=== PATIENT | female | born 1980 | race Caucasian/White ===

== ENCOUNTER 2021-10-30 10:56 | Emergency (ER) | payer BC ==
[~2021-10-30] VITALS: Ht 160 cm; Wt 90.7 kg
[~2021-10-30 10:56] MED LIST: CYCL10 PO; HYDACE5 PO; IBUP400 PO; IBUP800 PO; LORA.5; Percocet 5-3251 EACH PO; SULTRIDS PO; TRAM50 PO
== END 2021-10-30 11:33 | disposition home or self-care (01) ==
LOC: ER 10:56
DX: L23.7 Allergic contact dermatitis due to plants, except food (principal); Z88.8 Allergy status to other drugs, medicaments and biological substances; Z87.891 Personal history of nicotine dependence
CPT/HCPCS: 99282